=== PATIENT | male | born 1945 | race Caucasian/White ===

== ENCOUNTER 2021-02-13 10:29 | Outpatient (CLI) | payer MEDICARE ==
[2021-02-14 01:24] LABS: SARS-CoV-2 PCR by NAA Not Detected (NotDetected)
== END 2021-02-13 10:30 | disposition home or self-care (01) ==
LOC: CSHLAB 10:29
PROVIDERS: ATTEND Internal Medicine Cardiovascular Disease
DX: Z20.822 Contact with and (suspected) exposure to COVID-19 (principal); R06.02 Shortness of breath
CPT/HCPCS: 87635; U0003; U0005

== ENCOUNTER 2021-02-18 15:18 | Outpatient (CLI) | payer MEDICARE | END 2021-02-18 15:19 | disposition home or self-care (01) | LOC: CSHCP 15:18 | PROVIDERS: ATTEND Internal Medicine Cardiovascular Disease | DX: R06.02 Shortness of breath (principal); J98.4 Other disorders of lung | CPT/HCPCS: 94060; 94726; 94729; 94760 ==